=== PATIENT | female | born 1950 | race Caucasian/White ===

== ENCOUNTER → 2018-01-21 | Outpatient (CLI) | payer OTHER | LOC: CIMAGING 09:10 | PROVIDERS: ATTEND Family Medicine | DX: S09.90XA Unspecified injury of head, initial encounter (principal); M47.892 Other spondylosis, cervical region; M99.01 Segmental and somatic dysfunction of cervical region; G44.209 Tension-type headache, unspecified, not intractable | CPT/HCPCS: 70450-PO; 72050-PO ==